=== PATIENT | female | born 2000 | race Caucasian/White ===

== ENCOUNTER 2019-08-26 13:20 | Outpatient (CLI) | payer OTHER ==
--- NOTE | 2019-08-26 15:10 | ULT ---
OB ULTRASOUND: HISTORY: anatomy. FINDINGS: A single live intrauterine gestation is seen with measurements corresponding to an estimated gestatio nal age of 21 weeks 4 days and an ALFONSO of 01/02/2020. The estimated weight measures 427 g or 15 oz (47th percentile by Hadlock criteria). measurements are as follows: BPD: 4.97 cm (21 weeks 1 day) HC: 19.59 cm (21 weeks 6 days) AC: 16.81 cm (21 weeks 6 days) FL: 3.50 cm (21 weeks 1 day) heart rate measures 149 beats per minute. The placenta is anteriorly located without evidence o f placenta previa. PAOLA measures 14.7 cm. Cervical length measures 3.3 cm. Three vessel cord, cord insertion, kidneys, bladder, stomach, four chambered heart, lateral michelle tricles, cerebellum, spine, lips/nose, and upper and lower extremities are visualized. No definite fe manisha anomalies are seen. IMPRESSION: Single live intrauterine of 21 weeks 4 days estimated gestational age and an estimated date of delivery of 01/02/2020. POS: OFF
== END 2019-08-26 13:21 | disposition home or self-care (01) ==
LOC: BICULT 13:20
PROVIDERS: ATTEND Family Medicine
DX: Z34.02 Encounter for supervision of normal first pregnancy, second trimester (principal); Z3A.21 21 weeks gestation of pregnancy
CPT/HCPCS: 76805

== ENCOUNTER 2019-11-16 16:59 | Day surgery (SDC) | payer OTHER ==
[2019-11-16 17:22] VITALS: BMI 30.1
[2019-11-16] MEDS ORDERED: hydrALAZINE 20 MG/ML VIAL SLOW IVP PRN (18:17)
[2019-11-16 19:01] LABS: Bilirubin Negative (Negative); Blood, Urine Negative (Negative); Clarity Clear (Clear); Glucose, Urine (Dipstick) Normal (Negative); Leukocyte 250 Leu/uL (Negative); Nitrite Negative (Negative); Protein, Urine (Dipstick) Negative (Neg-Trace); RBC/HPF 0-3 HPF (0-3); Urobilinogen Normal mg/dL (Less than 2)
[2019-11-16 19:02] LABS: Bacteria/HPF Rare-Few HPF (None Seen)
[2019-11-16 19:49] LABS: FFN Internal QC Analyzer PASS (PASS); FFN Internal QC Cassette PASS (PASS); Fetal Fibronectin Negative (Negative)
[2019-11-16 20:40] LABS: Bacteria/HPF None Seen HPF (None Seen); Bilirubin Negative (Negative); Blood, Urine Negative (Negative); Clarity Clear (Clear); Glucose, Urine (Dipstick) Normal (Negative); Leukocyte Negative Leu/uL (Negative); Nitrite Negative (Negative); Protein, Urine (Dipstick) Negative (Neg-Trace); RBC/HPF 0-3 HPF (0-3); Squamous Epithelial None Seen HPF (0-3); Urobilinogen Normal mg/dL (Less than 2); WBC/HPF 0-3 HPF (0-3)
--- NOTE | 2019-11-16 22:34 | PRG ---
DATE OF SERVICE: 11/16/2019 PRIMARY SUSTAINABILITY PURCHASING AGENT: Dr. Morgan Oliver. CHIEF COMPLAINT: Abdominal pains. HISTORY OF PRESENT ILLNESS: The patient is a 19-year-old G1, P0 female with an intrauterine at 33 weeks and 2 days, who presented to Labor and Delivery today with sharp constant lateral pain and intermittent contractions. The patient reports that these pains began about 11 o'clock today at work. She reports these sharp pains in her flanks is worse on her right. She reports exacerbation of the pain happens with getting out of car, getting up and moving and lifting. She reports in addition when she has a contraction, the pain is a lot worse. She reports she is having contractions maybe once an hour. She denies vaginal bleeding or leakage of fluid. She denies any recent fever, cough, fall, headache, chest pain, shortness of breath, nausea, vomiting, diarrhea, constipation, hip problems, knee problems, muscle weakness, any new rashes. She does report a change in her discharge over the last few days, has developed an odor and has become more prevalent. She reports intercourse one week ago. PAST MEDICAL HISTORY: Negative. 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 PAST SURGICAL HISTORY: She reports is negative. Hospitalization: She reports a ruptured right ovarian cyst in June or April of last year. SOCIAL HISTORY: Denies drug, alcohol, or tobacco use. She lives in [place], works in [employer]. OBSTETRIC LABS: Unavailable at time of dictation. REVIEW OF SYSTEMS: Per HPI. PHYSICAL EXAMINATION: VITAL SIGNS: Blood pressure 116/57, heart rate of 82, respiratory rate of 20, temperature 98.7. GENERAL: She appears to be in no acute distress. She is alert, oriented, cooperative, pleasant to interact with. HEAD: Normocephalic, atraumatic. LUNGS: Clear to auscultation bilaterally. HEART: Has regular rate and rhythm. ABDOMEN: Gravid and soft. She does have some reproduction of her lateral pain with deviation of the uterus. This pain seems the most prevalent in her right and left lower quadrants. EXTREMITIES: Nontender, nonedematous. PELVIS: Vulva is without masses, lesions, or erythema. Vagina is moist. She does have discharge present vaginally, a little more copious than expected. A fibronectin was collected as was a ANIMAL DOCTOR-III. Cervix is long and fingertip. heart tracing shows the fetus with a baseline in the 150s with moderate long-term variability, positive 15 x 15 accelerations. Tocometer shows no real significant contractions, maybe some irritability underlying, but difficult to see on tocometer. LABORATORY DATA: Urinalysis shows trace ketones, negative white blood cells, negative leukocyte esterase, negative bacteria. fibronectin is negative. ANIMAL DOCTOR-III is positive for yeast and Gardnerella. ASSESSMENT AND PLAN: The patient is a 19-year-old with an intrauterine at 33 weeks and 2 days, presenting with what is most consistent with musculoskeletal pain of . She has no evidence of labor and has a negative fibronectin. The patient has a diagnosis of bacterial vaginosis and Bekah. She has been given a prescription for metronidazole 500 mg to be taken twice a day for the next week as well as the recommendations for using [id number] Monistat 7 or similar medication vaginally for seven days. The patient has been given reassurance and is being discharged home. Fetus has a category 1 tracing reactive NST. She has an appointment next Monday with her primary provider. Job ID: [id number]
== END 2019-11-16 21:10 | disposition home or self-care (01) ==
LOC: L&D/OP 16:59
PROVIDERS: ATTEND Family Medicine
DX: O47.03 False labor before 37 completed weeks of gestation, third trimester (principal); O98.813 Other maternal infectious and parasitic diseases complicating pregnancy, third trimester; B37.9 Candidiasis, unspecified; O23.593 Infection of other part of genital tract in pregnancy, third trimester; B96.89 Other specified bacterial agents as the cause of diseases classified elsewhere; Z3A.33 33 weeks gestation of pregnancy
CPT/HCPCS: 59025; 81001; 82731; 87480; 87510; 87660; 99285

== ENCOUNTER 2019-12-26 00:38 | Day surgery (SDC) | payer OTHER ==
[2019-12-26 01:14] LABS: Amnisure Internal Control QC ACCEPTABLE (ACCEPTABLE)
[2019-12-26 01:24] LABS: Amnisure Test No Membranes Rupture (No Rupture)
[2019-12-26] MEDS ORDERED: FLU VACC QS2019-20(6MOS UP)/PF 60 MCG/0.5 ML SYRINGE IM ONE (02:00)
[2019-12-26] MEDS ORDERED: hydrALAZINE 20 MG/ML VIAL SLOW IVP PRN (06:57)
--- NOTE | 2019-12-26 07:30 | PRG ---
DATE OF SERVICE: 12/26/2019 PRIMARY OB: Dr. Morgan Oliver. CHIEF COMPLAINT: Leakage of fluid. HISTORY OF PRESENT ILLNESS: The patient is a 19-year-old G1, P0 female with an intrauterine at 38 weeks and 4 days, presenting to Labor and Delivery after experiencing some leakage of fluid. She reports that she felt she had a couple drips on her leg and some wetness which happened a couple times. She did not believe it was urine as it did not smell like urine. The patient feels some tightening of her belly, but does not have any pain. She denies vaginal bleeding. She denies urinary urgency or frequency. She denies any recent fever, fall, headache, chest pain, shortness of breath, persistent nausea, vomiting. She has had some diarrhea. Denies constipation, hip problems, knee problems, muscle weakness. Denies any new rashes. PAST MEDICAL HISTORY: Negative. PAST SURGICAL HISTORY: Negative. ALLERGIES: NO KNOWN DRUG ALLERGIES. MEDICATIONS: vitamins. OB LABS: Blood type is A positive. Antibody screen is negative. RPR is nonreactive in the first and third trimester. HIV is nonreactive in the first and third trimester. Hepatitis B surface antigen is negative. She is rubella immune. GC chlamydia negative. REVIEW OF SYSTEMS: Per HPI. PHYSICAL EXAMINATION: VITAL SIGNS: Blood pressure 122/72, heart rate of 89, respiratory rate of 18, temperature 98.3. GENERAL: She appears to be in no acute distress. She is alert, oriented, cooperative, and pleasant to interact with. HEAD: Normocephalic, atraumatic. LUNGS: Clear to auscultation bilaterally. HEART: Regular rate and rhythm. ABDOMEN: Gravid, soft, nontender. EXTREMITIES: Nontender, nonedematous. GENITALIA: Vulva without masses, lesions, or erythema. Vagina is moist with some minimal curd-like discharge. She has significant amount of mucus at the os. There is no pulling present on Valsalva or cough. Cervical exam was 3, 50, -2 station. Repeat after 2 hours was 3, 50, and -2 station. heart tracing shows the fetus with a baseline in the 130s with moderate long-term variability, positive 15 x 15 accelerations, no decelerations. Tocometer shows contractions every 2 to 3 minutes and again not painful to the patient and not all present. AmniSure test is negative. ASSESSMENT AND PLAN: The patient is a 19-year-old female with an intrauterine at 38 weeks and 4 days, presenting with leakage of fluid. There is no evidence of rupture of membranes or labor as patient had no change on her cervical exam. The patient is being discharged home with term labor precautions and instructions to follow up with Dr. Oliver as scheduled. Job ID: [id number]
== END 2019-12-26 04:25 | disposition home or self-care (01) ==
LOC: L&D/OP 00:38
PROVIDERS: ATTEND Family Medicine
DX: O99.89 Other specified diseases and conditions complicating pregnancy, childbirth and the puerperium (principal); N89.8 Other specified noninflammatory disorders of vagina; R19.7 Diarrhea, unspecified; Z3A.38 38 weeks gestation of pregnancy
CPT/HCPCS: 84112

== ENCOUNTER 2019-12-28 20:59 | Inpatient (IN) | payer OTHER ==
[~2019-12-28 20:59] MED LIST: Bupivacaine/Epinephrine 0.25% 30 ML VIAL ONE
[2019-12-28 21:40] VITALS: BMI 32.4
[2019-12-28] MEDS ORDERED: hydrALAZINE 20 MG/ML VIAL SLOW IVP PRN ×2 (22:06→23:27)
[2019-12-28] MEDS ORDERED: Lactated Ringer's 1,000 ML IV SCH (22:15)
--- NOTE | 2019-12-28 22:37 | PDOC.FPROB ---
FMR OB H&P: Medications - Current Home Medications: Medication Instructions Recorded Confirmed Type Vit37/Iron/Folic Acid 1 tab PO DAILY 12/26/19 12/28/19 History [Prenata Chewable Tablet] Allergies/Adverse Reactions: Allergies Allergy/AdvReac Type Severity Reaction Status Date / Time No Known Allergies Allergy Verified 12/28/19 21:41 FMR OB H&P: Vital Signs - Maternal Vital signs: Vital Signs - First Documented Temp Pulse Resp BP Pulse Ox 98.1 F 95 12 126/74 100 12/28/19 21:35 12/28/19 21:35 12/28/19 21:35 12/28/19 21:35 12/28/19 21:35 FMR OB H&P: A/P - Problem List (1) Current Visit: Yes Status: Acute Discussion: Date/Time: 12/28/192235 PCP: Benito HPI: This is a 19 yo F at 39.2 weeks coming in for contractions. She states she is feeling contractions about 5 minutes apart 2-3 hours ago. She affirms movement, denies ROM or bleeding. Denies DURAN, visual changes, SOB, or swelling. History: OB hx: G1, uncomplicated course PMH: denies Asthma, HTN, DM PSH: None Meds: PNV All: NKDA Soc Hx: denies smoking, alcohol, drugs Fam Hx: father DM GBS: + Blood type: A+ REVIEW OF SYSTEMS: Gen: no fever, chills, or sweats Neuro: no numbness/tingling, no weakness, denies headache ENT: denies congestion Eyes: no visual changes Resp: denies cough, no production, no SOB, no wheeze Card: denies chest pain, no palpitations GI: denies nausea, vomiting, diarrhea : no dysuria, no hematuria Skin: no rash, no erythema Psych: denies hx anxiety/depression Vitals: T: 98.5 R: 18 BP: 126/74 P:67 at: 98% on RA PHYSICAL EXAMINATION: General: NAD, alert and oriented x3 HEENT: EOMI, normal sclera Neck: Supple. Full ROM. Heart/Cardiovascular System: RRR, Cap refill < 3 seconds, no rub, no murmur Lungs/Respiratory System: clear to auscultation bilaterally. No increased work of breathing. Room air. Abdomen/Gastro-Intestinal System: no abdominal tenderness, normal bowel sounds, Gravid Extremities: Warm extremities. No cyanosis or edema. Neuro: No gross deficits appreciated Psychiatry: Awake, Alert and cooperative with exam Skin: no lesions, no rashes Musculoskeletal: Full ROM A/P: This is a 19 yo F at 39.2 weeks here for labor r/o FHT: 120 baseline, mod variability, no decels, accels present [place]: cxns q5 min # - Initial SVE /-1 - Recheck /-, admitted for labor, augment as needed - Had early decels on presentation, resolved after 1L bolus - GBS+, penicillin
[2019-12-28] MEDS ORDERED: Butorphanol Tartrate 1 MG/ML VIAL SLOW IVP PRN (23:27)
[2019-12-28] MEDS ORDERED: Acetaminophen 500 MG TAB PO PRN (23:27)
[2019-12-28] MEDS ORDERED: Ondansetron PF 4 MG/2 ML Vial IVP PRN (23:27)
[2019-12-28] MEDS ORDERED: NS / Oxytocin 40 units/1000ml 1,000 ML IV PRN (23:27)
[2019-12-28] MEDS ORDERED: Lidocaine 1% (PF) 30 ML VIAL SC PRN (23:27)
[2019-12-28] MEDS ORDERED: Promethazine HCl 25 MG/ML VIAL IM PRN (23:27)
[2019-12-28] MEDS ORDERED: NS w/ Oxytocin 10 units 500 ML IV SCH (23:30)
[2019-12-28] MEDS ORDERED: Penicillin G Potassium 5 MILL.UNITS in Sodium Chloride 0.9% 100 ML IVPB SCH (23:59)
[2019-12-29] MEDS: Lactated Ringer's 1,000 ML IV SCH ×2 (00:20→07:49)
[2019-12-29 01:35] LABS: Hemoglobin 10.1 g/dL (12.0-16.0); Mean Corpuscular HGB CONC 33.1 g/dL (32.0-36.0); Mean Corpuscular Hemoglobin 26.8 pg (27.0-31.0); Mean Corpuscular Volume 80.9 fL (78.0-98.0); Mean Platelet Volume 11.4 fL (7.4-10.4); Platelet Count 163 thou/uL (130-400); Red Blood Cell (RBC) Count 3.79 mill/uL (4.20-5.40); White Blood Cell (WBC) Count 11.6 thou/uL (4.8-10.8)
[2019-12-29 03:13] LABS: HBSAg Index 0.27 S/CO (0-0.99); Hep B Surf Ag Non-Reactive S/CO (NonReactive)
[2019-12-29] MEDS: Penicillin G 2.5 MILL.units 2.5 MILL.UNITS in Premix Bag 1 BAG IVPB SCH ×4 (04:56→15:22)
[2019-12-29 05:23] LABS: Syphilis Antibody Nonreactive (Nonreactive); Syphilis Antibody Index 0.04 S/CO (<1.00 Non-Reactive)
[2019-12-29] MEDS ORDERED: Fentanyl 4 mcg/Bup 0.1% Cadd 100 ML ONE (07:01)
[2019-12-29] MEDS: NS / Oxytocin 40 units/1000ml 1,000 ML IV SCH ×2 (10:54→12:41)
[2019-12-29] MEDS ORDERED: HYDROcodone/Acetaminophen 5/325 mg Tablet PO PRN ×2 (11:51)
[2019-12-29] MEDS ORDERED: Lanolin Ointment 7 GM TUBE TOP PRN (11:51)
[2019-12-29] MEDS ORDERED: Bisacodyl 10 MG SUPP PR PRN (11:51)
[2019-12-29] MEDS ORDERED: Ondansetron PF 4 MG/2 ML Vial IVP PRN (11:51)
[2019-12-29] MEDS ORDERED: diphenhydrAMINE 25 MG CAP PO PRN (11:51)
[2019-12-29] MEDS ORDERED: hydrALAZINE 20 MG/ML VIAL SLOW IVP PRN (11:51)
[2019-12-29] MEDS ORDERED: Benzocaine-Menthol 82.5 ML CAN TOP PRN (11:51)
[2019-12-29] MEDS ORDERED: Milk Of Magnesia 30 ML UDCUP PO PRN (11:51)
[2019-12-29] MEDS ORDERED: Preparation H Ointment 57 gram tube RC PRN (11:51)
[2019-12-29] MEDS: Ibuprofen 800 MG TAB PO SCH ×2 (15:20→18:50)
[2019-12-29] MEDS: Ferrous Sulfate 325 MG TAB PO SCH (17:13)
[2019-12-29] MEDS ORDERED: Adacel (T-DAP) 0.5 ML SYRINGE IM ONE (21:00)
[2019-12-29] MEDS: Docusate Calcium (SURFAK) 240 MG CAP PO SCH (21:04)
[2019-12-30] MEDS: Ibuprofen 800 MG TAB PO SCH ×3 (03:53→16:30)
[2019-12-30] MEDS: Docusate Calcium (SURFAK) 240 MG CAP PO SCH ×2 (07:59→21:45)
[2019-12-30] MEDS: Prenatal Vitamin 1 TAB PO SCH (07:59)
[2019-12-30] MEDS: Ferrous Sulfate 325 MG TAB PO SCH ×2 (07:59→13:02)
[2019-12-31] MEDS: Ibuprofen 800 MG TAB PO SCH ×3 (00:32→16:18)
[2019-12-31 08:15] VITALS: BP 119/58; TEMP 98.5
[2019-12-31] MEDS: Docusate Calcium (SURFAK) 240 MG CAP PO SCH (08:17)
[2019-12-31] MEDS: Prenatal Vitamin 1 TAB PO SCH (08:17)
[2019-12-31] MEDS: Ferrous Sulfate 325 MG TAB PO SCH ×2 (08:18→15:08)
== END 2019-12-31 19:30 | disposition home or self-care (01) | DRG 807 ==
LOC: L&D/OP 20:59 → L&D 23:27 → 3SW 12-29 13:37
PROVIDERS: ADMIT Family Medicine; ATTEND Family Medicine
PROC: 10E0XZZ Delivery of Products of Conception, External Approach (ICD-10-PCS; principal; 2019-12-29)
DX: O99.824 Streptococcus B carrier state complicating childbirth (principal); Z37.0 Single live birth; Z3A.39 39 weeks gestation of pregnancy; Z84.89 Family history of other specified conditions; O70.1 Second degree perineal laceration during delivery
CPT/HCPCS: 36415; 51702; 85027; 86780; 86850; 86900; 86901; 87340; 99285; J0595; J2540; J2590; J3490

== ENCOUNTER 2022-11-15 13:23 | Emergency (ER) | payer OTHER, SELFPAY ==
[~2022-11-15 13:23] MED LIST changes: -Bupivacaine/Epinephrine 0.25% 30 ML VIAL ONE; +Iopamidol-370 76% 500 ML 1 ML ONE
[2022-11-15] MEDS ORDERED: Ketorolac Tromethamine 30 MG/ML VIAL ONE (13:57)
[2022-11-15 14:08] LABS: #Eosinphils 0.3 thou/uL (0.0-0.7); #Lymphocytes 2.2 thou/uL (1.20-3.40); #Monocytes 0.8 thou/uL (0.11-0.59); #Neutrophils 8.7 thou/uL (1.40-6.50); %Basophils 0.3 % (0.0-1.0); %Eosinophils 2.2 % (0.0-10.0); %Lymphocytes 18.1 % (21.0-51.0); %Monocytes 6.6 % (0.0-10.0); %Neutrophils 72.9 % (42.0-75.0); Hemoglobin 14.6 g/dL (12.0-16.0); Mean Corpuscular HGB CONC 34.1 g/dL (32.0-36.0); Mean Corpuscular Volume 94.1 fl (78.0-98.0); Mean Platelet Volume 9.7 fL (7.4-10.4); Platelet Count 225 10x3/uL (130-400); RBC Distribution Width 12.5 % (11.5-14.5); Red Blood Cell (RBC) Count 4.56 mill/uL (4.20-5.40)
[2022-11-15 14:36] LABS: ALT (SGPT) 24 U/L (8-55); AST (SGOT) 19 U/L (5-34); Albumin 4.3 g/dL (3.5-5.0); Alkaline Phosphatase 69 U/L (40-110); Anion Gap 15 mmol/L (10-20); BUN (Urea Nitrogen) 11 mg/dL (7.0-18.7); Calc. Creatinine Clearance 0 mL/min (70-130); Calcium 9.6 mg/dL (7.8-10.44); Carbon Dioxide 21 mmol/L (22-29); Chloride 108 mmol/L (98-107); Estimated GFR 110; Globulin 3.3 g/dL (2.4-3.5); Glucose 101 mg/dL (70-105); Potassium 4.5 mmol/L (3.5-5.1); Protein, Total 7.6 g/dL (6.0-8.3); Sodium 139 mmol/L (136-145)
[2022-11-15 15:24] LABS: BHCG - Serum Negative (NEGATIVE); Pregs Control Background? CLEAR/WHITE (CLR/WHITE); Pregs Control Bar Appear? YES (CONTROL BAR)
== END 2022-11-15 16:19 | disposition home or self-care (01) ==
LOC: ERS 13:23
DX: S16.1XXA Strain of muscle, fascia and tendon at neck level, initial encounter (principal); R10.9 Unspecified abdominal pain; D72.829 Elevated white blood cell count, unspecified; V89.2XXA Person injured in unspecified motor-vehicle accident, traffic, initial encounter
CPT/HCPCS: 36415; 71260; 72125; 74177; 80053; 84703; 85025; 96374; J1885; Q9967